=== PATIENT | female | born 1930 | race Hispanic/Latino ===

== ENCOUNTER → 2019-11-26 | Outpatient (CLI) | payer OTHER ==
[~2019-11-26] MED LIST: ACET-2247 PO; ALEN70TA10 PO; ATOR10TA69 PO; CALC-724 PO; DONE10TA43 PO; ERGO500014 PO; EYEL1MED TP; FLUT1BLS IH; IBUP-2784 PO; LIDO700A30 TP; NAPR-1023 PO; TRAM50TA4 PO; TYL3 PO
== END ==
LOC: SHCH 10:00
PROVIDERS: ATTEND Internal Medicine Cardiovascular Disease
DX: I10 Essential (primary) hypertension (principal); R00.2 Palpitations
CPT/HCPCS: 93306